=== PATIENT | male | born 1950 | race Hispanic/Latino ===

== ENCOUNTER 2020-06-01 12:09 | Inpatient (IN) | payer MEDICARE ==
[~2020-06-01] VITALS: Ht 170.2 cm; Wt 102.1 kg
[~2020-06-01 12:09] MED LIST changes: -ASPIRIN ENTERI325 MG PO; -ELIQUIS5 MG PO; -LIPITOR10 MG PO; -METOPROLOL TART50 MG PO; -PANTOPRAZOLE SO40 MG PO
[2020-06-01 12:50] LABS: BASOPHILS % 0.4 % (0.0-1.0); EOSINOPHILS # (AUTO) 0.2 (0.0-0.4); EOSINOPHILS % 1.8 % (0.0-6.0); HEMATOCRIT 46.8 % (38.2-49.6); HEMOGLOBIN 16.3 g/dL (14.0-18.0); LYMPHOCYTES # (AUTO) 2.3 (1.0-3.2); LYMPHOCYTES % 22.1 % (18.0-39.1); MEAN CORPUSCULAR HEMOGLOBIN 31.9 pg (28-32); MEAN CORPUSCULAR HGB CONC 34.8 g/dL (31-35); MEAN CORPUSCULAR VOLUME 91.6 fL (81-99); MONOCYTES # (AUTO) 1.2 (0.2-0.8); MONOCYTES % 11.7 % (4.4-11.3); NEUTROPHILS # (AUTO) 6.7 (2.1-6.9); NEUTROPHILS % 63.6 % (38.7-80.0); PLATELET COUNT 203 x10e3/uL (140-360); RED BLOOD COUNT 5.11 x10e6/uL (4.3-5.7); RED CELL DISTRIBUTION WIDTH 12.8 % (11.7-14.4)
--- NOTE | 2020-06-01 13:03 | Emergency Department Note ---
History of Present Illnes History of Present Illness Chief Complaint: Chest Pain History of Present Illness This is a 69 year old male Chief Complaint Comment Pt states was getting preop labs for upcoming endoscopy on friday when he was told his heart is "beating weird". States he was feeling "nervous" when they were drawing his blood. Denies any cp at this time. Denies any c/o at this time. Hx of HTN. Historian: Patient Leader Writer Required: No Onset (how long ago): unknown Location: None Quality: None Radiation: Reports non-radiation Severity: unable to specify Onset quality: unable to specify Timing of current episode: unable to specify Progression: unchanged Chronicity: new Context: Denies recent illness, Denies recent surgery Relieving factors: none Exacerbating factors: none Associated symptoms: Reports denies other symptoms Treatments prior to arrival: none Past Medical/Family History Physician Review I have reviewed the patient's past medical and family history. Any updates have been documented here. Past Medical History Recent Fever: No Clinical Suspicion of Infectio: No New/Unexplained Change in Ment: No Past Medical History: Hypertension Past Surgical History: Cholecysctectomy Other Surgery: Mole removal to R cheek and ear perforation surgery to R ear. Social History Smoking Cessation: Current some day smoker Alcohol Use: Occasional Any Illegal Drug Use: No Physically hurt or threatened: No Other Any Pre-Existing Lines (PICC,: No Review of Systems Review of Systems Constitutional: Reports no symptoms EENTM: Reports no symptoms Cardiovascular: Reports no symptoms Respiratory: Reports no symptoms Gastrointestinal: Reports no symptoms Genitourinary: Reports no symptoms Musculoskeletal: Reports no symptoms Integumentary: Reports no symptoms Neurological: Reports no symptoms Psychological: Reports no symptoms Endocrine: Reports no symptoms Hematological/Lymphatic: Reports no symptoms Physical Exam Related Data Allergies: Coded Allergies: No Known Allergies (Unverified , 05/31/20) Triage Vital Signs Vital Signs Date Time Temp Pulse Resp B/P (MAP) Pulse Ox O2 Delivery O2 Flow Rate FiO2 06/01/20 12:45 98.5 126 17 149/111 98 Room Air Vital signs reviewed: Yes Physical Exam CONSTITUTIONAL Constitutional: Present well-developed, Present well-nourished HENT HENT: Present normocephalic, Present atraumatic, Present oropharynx clear/moist, Present nose normal HENT L/R: Present left ext ear normal, Present right ext ear normal EYES Eyes: Reports PERRL, Reports conjunctivae normal NECK Neck: Present ROM normal PULMONARY Pulmonary: Present effort normal, Present breath sounds normal CARDIOVASCULAR Cardiovascular: Present irregular rhythm, Present heart sounds normal, Present capillary refill normal, Present tachycardia; Absent regular rhythm GASTROINTESTINAL Abdominal: Present soft, Present nontender, Present bowel sounds normal GENITOURINARY Genitourinary: Present exam deferred SKIN Skin: Present warm, Present dry MUSCULOSKELETAL Musculoskeletal: Present ROM normal NEUROLOGICAL Neurological: Present alert, Present oriented x 3, Present no gross motor or sensory deficits PSYCHOLOGICAL Psychological: Present mood/affect normal, Present judgement normal Results Laboratory Result Diagram: 06/01/20 1234 Laboratory Laboratory Tests Test 06/01/20 12:34 White Blood Count 10.48 x10e3/uL (4.8-10.8) Red Blood Count 5.11 x10e6/uL (4.3-5.7) Hemoglobin 16.3 g/dL (14.0-18.0) Hematocrit 46.8 % (38.2-49.6) Mean Corpuscular Volume 91.6 fL (81-99) Mean Corpuscular Hemoglobin 31.9 pg (28-32) Mean Corpuscular Hemoglobin Concent 34.8 g/dL (31-35) Red Cell Distribution Width 12.8 % (11.7-14.4) Platelet Count 203 x10e3/uL (140-360) Neutrophils (%) (Auto) 63.6 % (38.7-80.0) Lymphocytes (%) (Auto) 22.1 % (18.0-39.1) Monocytes (%) (Auto) 11.7 % (4.4-11.3) Eosinophils (%) (Auto) 1.8 % (0.0-6.0) Basophils (%) (Auto) 0.4 % (0.0-1.0) Neutrophils # (Auto) 6.7 (2.1-6.9) Lymphocytes # (Auto) 2.3 (1.0-3.2) Monocytes # (Auto) 1.2 (0.2-0.8) Eosinophils # (Auto) 0.2 (0.0-0.4) Basophils # (Auto) 0.0 (0.0-0.1) Absolute Immature Granulocyte (auto 0.04 x10e3/uL (0-0.1) Lab results reviewed: Yes Imaging Imaging results reviewed: Yes Diagnostics Tests Diagnostic test(s) reviewed: Yes Procedures 12 Lead ECG Interpretation ECG Interpretation : Leader Writer: Interpreted by ED physician Date: Jun 01, 2020 Rhythm: atrial flutter Rate: tachycardia QRS axis: normal ST segments normal: Yes T waves normal: Yes Clinical Impression: abnormal ECG Assessment & Plan Medical Decision Making MDM 69 y.o M past medical history significant for hypertension presents to emergency department for abnormal EKG. He is having preop screening with EKG today in the hospital is noted to be in atrial flutter with a variable block. Patient has no complaints this time. Confirmed EKG shows atrial flutter, unknown when he started this rhythm. He was given Lopressor 10 mg. Admit to . Dr. Cedeño consulted Reassessment Reassessment time: 13:02 Reassessment Well appearing, NAD Assessment & Plan Final Impression: (1) Atrial flutter Depart Disposition: ADMITTED Last Vital Signs Date Time Temp Pulse Resp B/P (MAP) Pulse Ox O2 Delivery O2 Flow Rate FiO2 06/01/20 12:45 98.5 126 17 149/111 98 Room Air Home Meds Reported Medications Lisinopril (LISINOPRIL) 10 Mg Tablet, 40 MG PO DAILY, #30 TAB 05/31/20 Metoprolol Succinate (METOPROLOL SUCCINATE) 50 Mg Tab.er.24h, 50 MG PO DAILY, MG 05/31/20 DANIELA MORTON MD Jun 01, 2020 13:03
[2020-06-01] MEDS ORDERED: METOPROLOL TARTRATE INJ 1 MG/ML VIAL IV ONE ×2 (13:15)
[2020-06-01] MEDS ORDERED: SODIUM CHLORIDE 0.9% 1000ML 1,000 ML IV SCH (13:15)
--- NOTE | 2020-06-01 13:19 | Diagnostic Imaging Report ---
TECHNIQUE: Frontal view of the chest. INDICATION: ^A-flutter ^[id number] ^[id number] COMPARISON: None DISCUSSION: Limited evaluation due to portable technique. Lines and hardware: Overlying EKG leads are noted Heart and mediastinum: Within normal limits. Lungs and pleura: No focal airspace consolidation. No pleural effusion. No pneumothorax. Soft tissues and bones: No acute abnormality. IMPRESSION: Negative for acute intrathoracic process. Signed by: Pieter Marrero MD on 06/01/2020 1:16 PM
[2020-06-01 13:20] LABS: ALBUMIN 4.2 g/dL (3.5-5.0); ANION GAP 13.6 mmol/L (8-16); CREATININE, SERUM 1.29 mg/dL (0.72-1.25); POTASSIUM 3.6 mmol/L (3.5-5.1)
[2020-06-01] MEDS ORDERED: SODIUM CHLORIDE 0.9% 500ML 500 ML ONE (13:25)
[2020-06-01 13:51] LABS: THYROID STIMULATING HORMONE 1.193 uIU/mL (0.350-4.940)
--- OUTSIDE RECORDS SUMMARY | 2020-06-01 14:20 | XMS REPORT | Continuity of Care Document ---
Author Author [facility] t Organization [facility] Address [address] [place] [address] Phone Unavailable Care Team Providers Care Anatomic Pathology Assistant Name Role Phone Eugene Grande Attdavid Unavailable Problems Condition Name Condition Details Condition Category Status Onset Date Resolution Date Last Treatment Date Treating Clinician Comments Source Alcohol dependence Alcohol Dependence Problem Active 2017-09-17 00:00:0 0 [facility] Raised prostate specific antigen Raised Prostate Specific Antige n Problem Active 2017-09-17 00:00:00 [facility] Lower urinary tract symptoms due to benign prostatic h ypertrophy Lower Urinary Tract Symptoms Due to Benign Prostatic Hypertrophy Problem Active 2017-09-17 00:00:00 [facility] Prediabetes Prediabetes Problem Active 2017-02-21 00:00:00 [facility] Tobacco user Tobacco User Problem Active 2016-10-17 00:00:00 [facility] Hearing loss Hearing Loss Problem Active 2016-05-17 00:00:00 [facility] Hypertensive disorder Hypertensive Disorder Problem Active 201 12-15-24 00:00:00 [facility] ractice Chronic mastoiditis Chronic Mastoiditis Problem Active 2016-05 00:00:00 2017-10-22 00:00:00 [facility] Allergies, Adverse Reactions, Alerts This patient has no known allergies or adverse reactions. Social History Smoking Status Start Date Stop Date Source Light Tobacco Smoker [facility] Medications Ordered Medication Name Filled Medication Name Start Date Stop Da te Current Medication? Ordering Clinician Indication Dosage Frequency Signature (SIG) Comments Components Source trazodone 100 mg tablet trazodone 100 mg tablet 2016-10-17 00:00 :00 2017-02-20 00:00:00 No trazodone 100 mg tablet [facility] fexofenadine 60 mg tablet casper 1 tablet a por via oral dos veces cada bharat por cristhian necesaria alergias fexofenadine 60 mg tablet casper 1 tablet a por via oral dos veces cada bharat por cristhian necesaria alergias No fexofenadine 60 mg tablet casper 1 tableta por via oral dos veces cada bharat por cristhian necesaria alergias [facility] Pract ice fluticasone 50 mcg/actuation nasal spray,suspension fl uticasone 50 mcg/actuation nasal spray,suspension No f luticasone 50 mcg/actuation nasal spray,suspension [facility]-hydrochlorothiazide 25 mg tablet bisi nopril 20 mg- hydrochlorothiazide 25 mg tablet No lisinopril 20 mg- hydrochlorothiazide 25 mg tablet [facility] metoprolol tartrate 50 mg tablet metoprolol tartrate 50 mg tablet No metoprolol tartrate 50 mg tablet [facility] tamsulosin 0.4 mg capsule tamsulosin 0.4 mg capsule No tamsulosin 0.4 mg capsule [facility] mg tablet casper 1 tableta po r via oral dos veces cada bharat por cristhian necesaria dolor tramadol 50 mg tablet casper 1 tableta po r via oral dos veces cada bharat por cristhian necesaria dolor No tramadol 50 mg tablet casper 1 tableta por via oral dos veces cada bharat por cristhian necesaria dolor [facility] amoxicillin 875 mg-potassium clavulanate 125 mg tablet amoxicillin 875 mg- potassium clavulanate 125 mg tablet 2017-09-17 00:00:00 No amoxicillin 875 mg-potassium clavulanate 125 mg tablet [facility] gabapentin 300 mg capsule gabapentin 300 mg capsule 00:00:00 No gabapentin 300 mg capsule [facility] naproxen 500 mg tablet Take 1 tablet twice a day by or al route for 30 days. naproxen 500 mg tablet Take 1 tablet twice a day by oral route for 30 days. 2017-02-20 00:00:00 No 1 BID napro xen 500 mg tablet Take 1 tablet twice a day by oral route for 30 days. [place] Depo-Medrol 80 mg/mL suspension for inje ction injected 1 ml deep IM, once, as a single dose Depo-Medrol 80 mg/mL suspension for inje ction injected 1 ml deep IM, once, as a single dose 2016-12-23 00:00:00 No Depo-Medrol 80 mg/mL suspension for injection injected 1 ml deep IM, once, as a single dose [facility] diazepam 2 mg tablet Take 1 tablet 3 times a day by or al route for 15 days. diazepam 2 mg tablet Take 1 tablet 3 times a day by oral route for 15 days. 2016-10-17 00:00:00 No 1 TID diaze kaylin 2 mg tablet Take 1 tablet 3 times a day by oral route for 15 days. [place] ketorolac 60 mg/2 mL intramuscular solut ion Inject 2 mL every day by intramuscular route for 1 day. ketorolac 60 mg/2 mL intramuscular solut ion Inject 2 mL every day by intramuscular route for 1 day. 2016 00:00:00 No 2mL Q1D ketorolac 60 mg /2 mL intramuscular solution Inject 2 mL every day by intramuscular route for 1 day. [place] Anaprox DS 550 mg tablet Take 1 tablet e very 12 hours by oral route for 60 days. Anaprox DS 550 mg tablet Take 1 tablet e very 12 hours by oral route for 60 days. 2016-10-02 00:00:00 No 1 Q12H Anap greg DS 550 mg tablet Take 1 tablet every 12 hours by oral route for 60 days. [facility] Ciprodex 0.3 %-0.1 % ear drops,suspension Ciprodex 0.3 %-0.1 % ear drops,suspension 2016-10-02 00:00:00 No Ciprodex 0.3 %-0.1 % ear drops,suspension [facility] 500 mg tablet ciprofloxacin 500 mg tablet 2016-04-29 00:00:00 No ciprofloxacin 500 mg tablet [facility] lisinopril 20 mg-hydrochlorothiazide 12.5 mg tablet li sinopril 20 mg- hydrochlorothiazide 12.5 mg tablet 2016-04-29 00:00:00 No lisinopril 20 mg-hydrochlorothiazide 12.5 mg tablet [facility] metronidazole 250 mg tablet metronidazole 250 mg tablet 2016-04-29 00:00:00 No metronidazole 250 mg tablet [facility] metronidazole 500 mg tablet metronidazole 500 mg tablet 2016-04-29 00:00:00 No metronidazole 500 mg tablet [facility] uvmoidys-rspuuokln-sfqhfyzjr 3.5 mg-10,000 unit/mL-1 % ear drops,susp tjxxyxpd-wmfelzqhz-nupbywmwb 3.5 mg-10,000 unit/mL-1 % ear drops,susp 2016-04-29 00:00:00 No neomy zcq-jfedabqds-lcmzxfumn 3.5 mg-10,000 unit/mL-1 % ear drops,susp [facility] Suprep Bowel Prep Kit 17.5 gram-3.13 gram-1.6 gram ora l solution Suprep Bowel Prep Kit 17.5 gram-3.13 gram-1.6 gram oral solution 2016-04-29 00:0 0:00 No Suprep Bowel Prep Kit 17.5 gram-3.13 gram-1.6 g [place] oral solution [facility] Immunizations Ordered Immunization Name Filled Immunization Name Date Status Comments Source pneumococcal conjugate PCV 13 pneumococcal conjugate PCV 13 2017 17:07:00 Completed [facility] Vital Signs Vital Name Observation Time Observation Value Comments Source BP Diastolic 2017-10-16 00:00:00 64 mm[Hg] [facility] Height 2017-10-16 00:00:00 68 [in_i] [facility] BMI (Body Mass Index) 2017-10-16 00:00:00 34.5 kg/m2 [facility] BP Systolic 2017-10-16 00:00:00 130 mm[Hg] [facility] Body Weight 2017-10-16 00:00:00 226.8 [lb_av] [facility] BP Diastolic 2017-09-17 00:00:00 89 mm[Hg] [facility] Height 2017-09-17 00:00:00 68 [in_i] [facility] BMI (Body Mass Index) 2017-09-17 00:00:00 34.5 kg/m2 [facility] BP Systolic 2017-09-17 00:00:00 124 mm[Hg] [facility] Body Weight 2017-09-17 00:00:00 227 [lb_av] [facility] BP Diastolic 2017-08-20 00:00:00 92 mm[Hg] [facility] Height 2017-08-20 00:00:00 68 [in_i] [facility] BMI (Body Mass Index) 2017-08-20 00:00:00 34.5 kg/m2 [facility] BP Systolic 2017-08-20 00:00:00 170 mm[Hg] [facility] Body Weight 2017-08-20 00:00:00 226.8 [lb_av] [facility] BP Diastolic 2017-03-20 00:00:00 64 mm[Hg] [facility] Height 2017-03-20 00:00:00 68 [in_i] [facility] BMI (Body Mass Index) 2017-03-20 00:00:00 35.6 kg/m2 [facility] BP Systolic 2017-03-20 00:00:00 128 mm[Hg] [facility] Body Weight 2017-03-20 00:00:00 234 [lb_av] [facility] BP Diastolic 2017-02-20 00:00:00 100 mm[Hg] [facility] Height 2017-02-20 00:00:00 68 [in_i] [facility] BMI (Body Mass Index) 2017-02-20 00:00:00 35.6 kg/m2 [facility] BP Systolic 2017-02-20 00:00:00 172 mm[Hg] [facility] Body Weight 2017-02-20 00:00:00 234 [lb_av] [facility] BP Diastolic 2016-12-23 00:00:00 93 mm[Hg] [facility] Height 2016-12-23 00:00:00 68 [in_i] [facility] BMI (Body Mass Index) 2016-12-23 00:00:00 35.7 kg/m2 [facility] BP Systolic 2016-12-23 00:00:00 175 mm[Hg] [facility] Body Weight 2016-12-23 00:00:00 235 [lb_av] [facility] BP Diastolic 2016-10-24 00:00:00 85 mm[Hg] [facility] Height 2016-10-24 00:00:00 68 [in_i] [facility] BMI (Body Mass Index) 2016-10-24 00:00:00 35.4 kg/m2 [facility] BP Systolic 2016-10-24 00:00:00 145 mm[Hg] [facility] Body Weight 2016-10-24 00:00:00 232.8 [lb_av] [facility] BP Diastolic 2016-10-18 00:00:00 82 mm[Hg] [facility] Height 2016-10-18 00:00:00 68 [in_i] [facility] BMI (Body Mass Index) 2016-10-18 00:00:00 35.7 kg/m2 [facility] BP Systolic 2016-10-18 00:00:00 162 mm[Hg] [facility] Body Weight 2016-10-18 00:00:00 234.8 [lb_av] [facility] BP Diastolic 2016-10-17 00:00:00 86 mm[Hg] [facility] Height 2016-10-17 00:00:00 68 [in_i] [facility] BMI (Body Mass Index) 2016-10-17 00:00:00 35.5 kg/m2 [facility] BP Systolic 2016-10-17 00:00:00 189 mm[Hg] [facility] Body Weight 2016-10-17 00:00:00 233.6 [lb_av] [facility] BP Diastolic 2016-10-02 00:00:00 85 mm[Hg] [facility] Height 2016-10-02 00:00:00 68 [in_i] [facility] BMI (Body Mass Index) 2016-10-02 00:00:00 35.9 kg/m2 [facility] BP Systolic 2016-10-02 00:00:00 177 mm[Hg] [facility] Body Weight 2016-10-02 00:00:00 236 [lb_av] [facility] BP Diastolic 2016-08-20 00:00:00 87 mm[Hg] [facility] Height 2016-08-20 00:00:00 68 [in_i] [facility] BMI (Body Mass Index) 2016-08-20 00:00:00 35.6 kg/m2 [facility] BP Systolic 2016-08-20 00:00:00 158 mm[Hg] [facility] Body Weight 2016-08-20 00:00:00 234 [lb_av] [facility] BP Diastolic 2016-04-29 00:00:00 90 mm[Hg] [facility] Height 2016-04-29 00:00:00 68 [in_i] [facility] BMI (Body Mass Index) 2016-04-29 00:00:00 35.9 kg/m2 [facility] BP Systolic 2016-04-29 00:00:00 170 mm[Hg] [facility] Body Weight 2016-04-29 00:00:00 236.4 [lb_av] [facility] BP Diastolic 2015-12-05 00:00:00 87 mm[Hg] [facility] Height 2015-12-05 00:00:00 68 [in_i] [facility] BMI (Body Mass Index) 2015-12-05 00:00:00 35.39 kg/m2 [facility] BP Systolic 2015-12-05 00:00:00 161 mm[Hg] [facility] Body Weight 2015-12-05 00:00:00 232.8 [lb_av] [facility] BP Diastolic 2015-11-06 00:00:00 85 mm[Hg] [facility] Height 2015-11-06 00:00:00 68 [in_i] [facility] BMI (Body Mass Index) 2015-11-06 00:00:00 35.21 kg/m2 [facility] BP Systolic 2015-11-06 00:00:00 169 mm[Hg] [facility] Body Weight 2015-11-06 00:00:00 231.6 [lb_av] [facility] BP Diastolic 2015-08-11 00:00:00 72 mm[Hg] [facility] Height 2015-08-11 00:00:00 68 [in_i] [facility] BMI (Body Mass Index) 2015-08-11 00:00:00 33.96 kg/m2 [facility] BP Systolic 2015-08-11 00:00:00 174 mm[Hg] [facility] Body Weight 2015-08-11 00:00:00 223.4 [lb_av] [facility] Procedures Procedure Date / Time Performed Performing Clinician Sourc e electrocardiogram 2017-10-16 00:00:00 [facility] TYMPANOMETRY 2017-09-17 00:00:[address] [facility] [address], abdomen + pelvis, w/wo contrast 2017-02-20 00:00:00 [facility] CT, abdomen, w/wo contrast 2016-12-23 00:00:00 [facility] US, ABDOMINAL COMPLETE 2016-10-23 00:00:00 [facility] US, ABDOMINAL COMPLETE 2016-10-18 00:00:00 [facility] Colonoscopy 2016-03-13 00:00:00 [facility] Practice Plan of Care Planned Activity Planned Date Details Comments Source Instructions [facility] Instructions [facility] Encounters Start Date/Time End Date/Time Encounter Type Admission Type Attendi [facility] Facility Care Department Encounter ID Source 2017-10-16 00:00:00 2017-10-16 00:00:00 Vic Abad MD: [address], [address], [place] [address], Ph. [facility] [id number] [facility] 2017-09-17 00:00:00 2017-09-17 00:00:00 Vic Abad MD: [id number], [address], [place] [address], [facility]. [facility] [id number] [facility] 2017-08-20 00:00:00 2017-08-20 00:00:00 Evelyn Mukund, RENTAL SALES REPRESENTATIVE: [address], [place] [address], Ph. [facility] [id number] [facility] 2017-03-20 00:00:00 2017-03-20 00:00:00 Evelyn Duval, RENTAL SALES REPRESENTATIVE: [address], [address], [place] [address], Ph. [facility] [id number] [facility] 2017-02-20 00:00:00 2017-02-20 00:00:00 Evelyn Mukund, RENTAL SALES REPRESENTATIVE: [address], [address], [place] [address], Ph. [facility] [id number] [facility] 2016-12-30 00:00:00 2016-12-30 00:00:00 Vic Abad MD: [address], [address], [place] [address], Ph. [facility] [id number] [facility] 2016-12-23 00:00:00 2016-12-23 00:00:00 VALARIE Christensen : [address], [address], [place] [address], Ph. [facility] [place] [facility] [id number] [facility] 2016-10-24 00:00:00 2016-10-24 00:00:00 Vic Abad MD: [address], [address], [place] [address], Ph. [facility] [place] [facility] [id number] [facility] 2016-10-23 00:00:00 2016-10-23 00:00:00 Vic Abad MD: [address], [address], [place] [address], Ph. [facility] [place] [facility] [id number] [facility] 2016-10-18 00:00:00 2016-10-18 00:00:00 MARK CarrascoP: [address], [address], [place] [address], Ph. [facility] [id number] [facility] 2016-10-17 00:00:00 2016-10-17 00:00:00 MARK CarrascoP: [address], [address], [place] [address], Ph. [facility] [id number] [facility] 2016-10-02 00:00:00 2016-10-02 00:00:00 VALARIE Christensen : [address], [address], [place] [address], Ph. [facility] [place] [facility] [id number] [facility] 2016-08-20 00:00:00 2016-08-20 00:00:00 Vic Abad MD: [address], [address], [place] [address], Ph. VFP [place] [facility] [id number] [facility] 2016-04-29 00:00:00 2016-04-29 00:00:00 Evelyn Duval, RENTAL SALES REPRESENTATIVE: [address] [facility] [address], [place] [address], Ph. [facility] [place] [facility] - [facility] [id number] [facility] chang Results Test Description Test Time Test Comments Results Result Comments Source CHEST SINGLE (PORTABLE) 2020-06-01 13:16:00 [facility]IC[facility] : 1950 Sex: M [facility] [address] [address] Patient Name: ÁNGEL MAURICIO MR #: [id number] : 1950 Age/Sex: 69/M Req #: [id number] Adm Physician: Ordered by: Dainela Grande MD Report #: [id number] Location: ER Room/Bed: Procedure: [id number] DX/CHEST SINGLE (PORTABLE) Exam Date: 06/01/20 Exam Time: 1235 REPORT STATUS: Signed TECHNIQUE: Frontal view of the chest. INDICATION: A-flutter [id number] COMPARISON: None DISCUSSION: Limited evaluation due to portable technique. Lines and hardware: Overlying EKG leads are noted Heart and mediastinum: Within normal limits. Lungs and pleura: No focal airspace consolidation. No pleural effusion. No pneumothorax. Soft tissues and bones: No acute abnormality. IMPRESSION: Negative for acute intrathoracic process. Signed by: Guera Marrero MD on 06/01/2020 1:16 PM Dictated By: GUERA MARRERO MD 15 Transcribed By: SAMIA on 06/01/206 COPY TO: DANIELA GRANDE MD spirometry 2017-10-22 09:23:00 Spirometry:Fev1:Fvc:Restriction:Obstruction:Notes: [facility] electrocardiogram 2017-10-16 16:24:00 Rate & Rhy thmQrsPR IntervalQRS DurationQT Interval [facility] tympanogram 2017-09-18 11:47:00 Test Item R Ear (test code = R Ear) abnormal L Ear (test code = L Ear) abnormal [facility] 2000 panel - Serum or Plasma 2017-09-17 17:15:00* Test Item Value Reference Range Interpretation Comments ALT (test code = ALT) 35 U/L 0-55 AST (test code = AST) 43 U/L 5-34 H BUN (test code = BUN) 12.0 mg/dL 8.4-25.7 alk phos (test code = alk phos) 81 unit/L 40-150 glucose (test code = glucose) 87 mg/dL 70-99 albumin (test code = albumin) 4.1 g/dL 3.5-5.0 creatinine (test code = creatinine) 0.82 mg/dL 0.72-1.25 eGFR non- (test code = eGFR non-) > 60 >60 total bilirubin (test code = total bilirubin) 0.7 mg/dL 0.2-1.2 eGFR - (test code = eGFR - ) >60 >60 sodium (test code = sodium) 139 mEq/L 136-145 potassium (test code = potassium) 4.5 mEq/L 3.5-5.1 chloride (test code = chloride) 97 mmol/L 98-107 L total protein (test code = total protein) 8.1 g/dL 6.4-8.3 calcium (test code = calcium) 9.1 mg/dL 8.8-10.0 CO2 (test code = CO2) 25.0 mmol/L 23.0-31.0 anion gap (test code = anion gap) 17 calc [facility] specific Ag [Mass/volume] in Serum or Plasma 2017-09-17 17:15:00* Test Item Value Reference Range Interpretation Comments PSA, total (test code = PSA, total) 7.18 NG/mL <4.00 H [facility] W Auto Differential panel - [id number] 15:20:00 * Test Item Value Reference Range Interpretation Comments WBC (test code = WBC) 6.32 x10*3/?L 4.23-9.07 RBC (test code = RBC) 5.00 10*12/L 4.63-6.08 hemoglobin (test code = hemoglobin) 15.60 g/dL 13.70-17.50 hematocrit (test code = hematocrit) 44.8 % 40.1-51.0 MCV (test code = MCV) 89.6 fL 80.0-100.0 MCH (test code = MCH) 31.2 pg 25.7-32.2 MCHC (test code = MCHC) 34.8 g/dL 32.3-36.5 RDW-SD (test code = RDW-SD) 43.1 fL 35.1-43.9 platelet count (test code = platelet count) 189.0 k/uL 163.0-337. 0 MPV (test code = MPV) 13.3 fL 7.5-11.5 H neut% (test code = neut%) 59.9 % 34.0-67.9 lymph% (test code = lymph%) 28.0 % 21.8-53.1 mon% (test code = mon%) 9.8 % 5.3-12.2 eos% (test code = eos%) 2.1 % 0.8-7.0 baso% (test code = baso%) 0.2 % 0.2-1.2 neut# (test code = neut#) 3.8 x10*3/?L 1.8-5.4 lymph# (test code = lymph#) 1.8 x10*3/?L 1.3-3.6 mon# (test code = mon#) 0.6 x10*3/?L 0.3-0.8 eos# (test code = eos#) 0.13 x10*3/?L 0.04-0.54 baso# (test code = baso#) 0.01 x10*3/?L 0.01-0.08 [facility] CenterHemoglobin A1c/Hemoglobin.total in [id number] 14:59:00* Test Item Value Reference Range Interpretation Comments A1C w/EAG (test code = A1C w/EAG) 6.1 % 1.0-5.7 H average blood glucose (test code = average blood glucose) 128 mg/dL [facility] Centerpulse [id number] 08:07:39* Test Item Value Reference Range Interpretation Comments Pulse Ox (test code = Pulse Ox) 97 [facility] CenterPro[facility] specific Ag [Mass/volume] in Serum or Plasma 2017-02-21 10:26:00* Test Item Value Reference Range Interpretation Comments PSA, total (test code = PSA, total) 5.37 NG/mL <4.00 H [facility] CenterHemoglobin A1c/Hemoglobin.total in [id number] 16:11:00* Test Item Value Reference Range Interpretation Comments A1C w/EAG (test code = A1C w/EAG) 5.8 % 1.0-5.7 H average blood glucose (test code = average blood glucose) 120 mg/dL [facility] CenterHelicobacter pylori [Presence] in Stomach by urea breath [id number] 09:55:00* Test Item Value Reference Range Interpretation Comments helicobacter pylori, urea breath test (t est code = helicobacter pylori, urea breath test) not detected not detected [facility] CenterHepatitis B virus surface Ag [Presence] in Serum or Plasma by Confirmatory [id number] 09:32:00* Test Item Value Reference Range Interpretation Comments hepatitis B surface antigen (test code = hepatitis B s urface antigen) non-reactive non-reactive [facility] CenterHepatic function 2000 panel - Serum or [id number] 09:32:00* Test Item Value Reference Range Interpretation Comments protein, total (test code = protein, total) 6.9 g/dL 6.1-8.1 albumin (test code = albumin) 3.8 g/dL 3.6-5.1 globulin (test code = globulin) 3.1 g/dL (calc) 1.9-3.7 albumin/globulin ratio (test code = albumin/globulin ratio) 1.2 (calc) 1.0-2.5 bilirubin, total (test code = bilirubin, total) 0.4 mg/dL 0.2-1. 2 bilirubin, direct (test code = bilirubin, direct) 0.1 mg/dL < or = 0.2 bilirubin, indirect (test code = bilirubin, indirect) 0.3 mg/dL (calc) 0.2-1.2 alkaline phosphatase (test code = alkaline phosphatase) 80 U/L 40-115 AST (test code = AST) 33 U/L 10-35 ALT (test code = ALT) 25 U/L 9-46 [facility] CenterHepatitis C virus RNA [Units/volume] (viral load) in Serum or Plasma by Probe and target amplification [id number] 09:32:00* Test Item Value Reference Range Interpretation Comments hepatitis C antibody (test code = hepatitis C antibody) non- reactive non-reactive signal to cut-off (test code = signal to cut-off) 0.04 <1.0 0 [facility] CenterHepatic function 2000 panel - Serum or [id number] 00:00:00* Test Item Value Reference Range Interpretation Comments Protein [Mass/volume] in Serum or Plasma (test code = 2885-2) 6. 9 g/dL 6.1-8.1 Albumin [Mass/volume] in Serum or Plasma (test code = 1751-7) 3. 8 g/dL 3.6-5.1 Globulin [Mass/volume] in Serum by calculation (test c ode = 68195-9) 3.1 g/dL (calc) 1.9-3.7 Albumin/Globulin [Mass Ratio] in Serum or Plasma (test code = 1759-0) 1.2 (calc) 1.0-2.5 Bilirubin.total [Mass/volume] in Serum or Plasma (test code = 1974-) 0.4 mg/dL 0.2-1.2 Bilirubin.direct [Mass/volume] in Serum or Plasma (elvie t code = 1968-01) 0.1 mg/dL < or = 0.2 Bilirubin.indirect [Mass/volume] in Serum or Plasma (t est code = 1971-1) 0.3 mg/dL (calc) 0.2-1.2 Alkaline phosphatase [Enzymatic activity /volume] in Serum or Plasma (test code = 6768-6) 80 U/L 40-115 Aspartate aminotransferase [Enzymatic ac tivity/volume] in Serum or Plasma (test code = 1920-8) 33 U/L 10-35 Alanine aminotransferase [Enzymatic acti vity/volume] in Serum or Plasma (test code = 1742-6) 25 U/L 9-46 [facility] Ag [Presence] in Serum or Plasma by Confirmatory [id number] 00:00:00* Test Item Value Reference Range Interpretation Comments Hepatitis B virus surface Ag [Presence] in Serum or Plasma by Immunoassay (test code = 5196-1) non-reactive non-reactive [facility] RNA [Units/volume] (viral load) in Serum or Plasma by Probe and target amplification [id number] 00:00:00* Test Item Value Reference Range Interpretation Comments Hepatitis C virus Ab [Presence] in Serum or Plasma by Immunoassay (test code = 57112-6) non-reactive non-reactive Hepatitis C virus Ab Signal/Cutoff in Se rum or Plasma by Immunoassay (test code = 22309-4) 0.04 <1.00 [facility] - Serum or [id number] 08:34:00* Test Item Value Reference Range Interpretation Comments cholesterol, total (test code = cholesterol, total) 156 mg/dL 12 5-200 HDL cholesterol (test code = HDL cholesterol) 48 mg/dL > or = 4 0 triglycerides (test code = triglycerides) 147 mg/dL <150 LDL-cholesterol (test code = LDL-cholesterol) 79 mg/dL (calc) <130 chol/HDLC ratio (test code = chol/HDLC ratio) 3.3 (calc) < or = 5 .0 non HDL cholesterol (test code = non HDL cholesterol) 108 mg/dL (ca lc) [facility]CBC [facility] Auto Differential panel - [id number] 08:34:00 * Test Item Value Reference Range Interpretation Comments white blood cell count (test code = white blood cell count) 6.3 thousand/uL 3.8-10.8 red blood cell count (test code = red blood cell count) 4.71 million/uL 4.20-5.80 hemoglobin (test code = hemoglobin) 14.4 g/dL 13.2-17.1 hematocrit (test code = hematocrit) 44.3 % 38.5-50.0 MCV (test code = MCV) 94.0 fL 80.0-100.0 MCH (test code = MCH) 30.7 pg 27.0-33.0 MCHC (test code = MCHC) 32.6 g/dL 32.0-36.0 RDW (test code = RDW) 13.1 % 11.0-15.0 platelet count (test code = platelet count) 234 thousand/uL 140-400 MPV (test code = MPV) 10.8 fL 7.5-12.5 absolute neutrophils (test code = absolute neutrophils) 3604 tiffani ls/uL 9451-9821 absolute lymphocytes (test code = absolute lymphocytes) 1827 tiffani ls/uL 850-3900 absolute monocytes (test code = absolute monocytes) 680 cells/uL 20 0-950 absolute eosinophils (test code = absolute eosinophils) 101 cells/u L 15-500 absolute basophils (test code = absolute basophils) 88 cells/uL 0- 200 neutrophils (test code = neutrophils) 57.2 % lymphocytes (test code = lymphocytes) 29.0 % monocytes (test code = monocytes) 10.8 % eosinophils (test code = eosinophils) 1.6 % basophils (test code = basophils) 1.4 % [facility] CenterProstate specific Ag [Mass/volume] in Serum or Plasma 2016-10-18 08:34:00* Test Item Value Reference Range Interpretation Comments PSA, total (test code = PSA, total) 6.5 NG/mL < or = 4.0 H [facility] CenterThyrotropin [Units/volume] in Serum or [id number] 08:34:00* Test Item Value Reference Range Interpretation Comments TSH (test code = TSH) 0.76 mIU/L 0.40-4.50 [facility] CenterCom[facility] 2000 [facility] - Serum or Plasma 2016-10-18 08:34:00* Test Item Value Reference Range Interpretation Comments glucose (test code = glucose) 138 mg/dL 65-99 H urea nitrogen (BUN) (test code = urea nitrogen (BUN)) 11 mg/dL 7-25 creatinine (test code = creatinine) 0.79 mg/dL 0.70-1.25 eGFR non-afr. micronesian (test code = eGFR non-afr. micronesian) 94 mL/min/1.73m2 > or = 60 eGFR (test code = eGFR ) 10 8 mL/min/1.73m2 > or = 60 BUN/creatinine ratio (test code = BUN/creatinine ratio) not applica ble 6-22 sodium (test code = sodium) 138 mmol/L 135-146 potassium (test code = potassium) 4.2 mmol/L 3.5-5.3 chloride (test code = chloride) 102 mmol/L 98-110 carbon dioxide (test code = carbon dioxide) 24 mmol/L 20-31 calcium (test code = calcium) 8.5 mg/dL 8.6-10.3 L protein, total (test code = protein, total) 6.9 g/dL 6.1-8.1 albumin (test code = albumin) 4.0 g/dL 3.6-5.1 globulin (test code = globulin) 2.9 g/dL (calc) 1.9-3.7 albumin/globulin ratio (test code = albumin/globulin ratio) 1.4 (calc) 1.0-2.5 bilirubin, total (test code = bilirubin, total) 0.4 mg/dL 0.2-1. 2 alkaline phosphatase (test code = alkaline phosphatase) 83 U/L 40-115 AST (test code = AST) 42 U/L 10-35 H ALT (test code = ALT) 29 U/L 9-46 [facility] CenterThyroxine (T4) [Mass/volume] in Serum or [id number] 08:34:00* Test Item Value Reference Range Interpretation Comments T4 (thyroxine), total (test code = T4 (thyroxine), total) 8.0 mcg/d L 4.5-12.0 [facility] 1996 [facility] - Serum or [id number] 00:00:00* Test Item Value Reference Range Interpretation Comments Cholesterol [Mass/volume] in Serum or Plasma (test code = 20 93-3) 156 mg/dL 125-200 Cholesterol in HDL [Mass/volume] in Serum or Plasma (t est code = 2085-9) 48 mg/dL > or = 40 Triglyceride [Mass/volume] in Serum or Plasma (test code = 2 571-8) 147 mg/dL <150 Cholesterol in LDL [Mass/volume] in Seru m or Plasma by calculation (test code = 65838-3) 79 mg/dL (calc) <130 Cholesterol.total/Cholesterol.in HDL [Ma ss ratio] in Serum or Plasma (test code = 9830-1) 3.3 (calc) < or = 5.0 Cholesterol non HDL [Mass/volume] in Serum or Plasma ( test code = 76737-1) 108 mg/dL (calc) [facility] or Plasma 2016-10-18 00:00:00* Test Item Value Reference Range Interpretation Comments Glucose [Mass/volume] in Serum or Plasma (test code = 2345-7) 138 m g/dL 65-99 H Urea nitrogen [Mass/volume] in Serum or Plasma (test code = 3094-0) 11 mg/dL 7-25 Creatinine [Mass/volume] in Serum or Plasma (test code = 216 0-0) 0.79 mg/dL 0.70-1.25 Glomerular filtration rate/1.73 sq M.pre dicted by Creatinine-based formula (MDRD) (test code = 98654-3) 94 mL/min/1.73m2 > or = 60 Glomerular filtration rate/1.73 sq M pre dicted among blacks by Creatinine-based formula (MDRD) (test code = 67038-1) 108 mL/min/1.73m2 > or = 60 Urea nitrogen/Creatinine [Mass Ratio] in Serum or Plas ma (test code = 3097-3) not applicable 6-22 Sodium [Moles/volume] in Serum or Plasma (test code = 2951-2 ) 138 mmol/L 135-146 Potassium [Moles/volume] in Serum or Plasma (test code = 282 3-3) 4.2 mmol/L 3.5-5.3 Chloride [Moles/volume] in Serum or Plasma (test code = 2075 -0) 102 mmol/L 98-110 Carbon dioxide, total [Moles/volume] in Serum or Plasm a (test code = 8-9) 24 mmol/L 20-31 Calcium [Mass/volume] in Serum or Plasma (test code = 67096- 6) 8.5 mg/dL 8.6-10.3 L Protein [Mass/volume] in Serum or Plasma (test code = 2885-2) 6. 9 g/dL 6.1-8.1 Albumin [Mass/volume] in Serum or Plasma (test code = 1751-7) 4. 0 g/dL 3.6-5.1 Globulin [Mass/volume] in Serum by calculation (test c ode = 87868-1) 2.9 g/dL (calc) 1.9-3.7 Albumin/Globulin [Mass Ratio] in Serum or Plasma (test code = 1759-0) 1.4 (calc) 1.0-2.5 Bilirubin.total [Mass/volume] in Serum or Plasma (test code = 1975-2) 0.4 mg/dL 0.2-1.2 Alkaline phosphatase [Enzymatic activity /volume] in Serum or Plasma (test code = 6768-6) 83 U/L 40-115 Aspartate aminotransferase [Enzymatic ac tivity/volume] in Serum or Plasma (test code = 1920-8) 42 U/L 10-35 H Alanine aminotransferase [Enzymatic acti vity/volume] in Serum or Plasma (test code = 1742-6) 29 U/L 9-[address] [facility] Auto Differential panel - [id number] 00:00:00 * Test Item Value Reference Range Interpretation Comments Leukocytes [#/volume] in Blood by Automated count (elvie t code = 6690-2) 6.3 thousand/uL 3.8-10.8 Erythrocytes [#/volume] in Blood by Automated count (t est code = 789-8) 4.71 million/uL 4.20-5.80 Hemoglobin [Mass/volume] in Blood (test code = 718-7) 14.4 g/dL 13.2-17.1 Hematocrit [Volume Fraction] of Blood by Automated cou nt (test code = 4544-3) 44.3 % 38.5-50.0 Erythrocyte mean corpuscular volume [Ent itic volume] by Automated count (test code = 787-2) 94.0 fL 80.0-100.0 Erythrocyte mean corpuscular hemoglobin [Entitic mass] by Automated count (test code = 785-6) 30.7 pg 27.0-33.0 Erythrocyte mean corpuscular hemoglobin concentration [Mass/volume] by Automated count (test code = 786-4) 32.6 g/dL 32.0-36.0 Erythrocyte distribution width [Ratio] by Automated co unt (test code = 788-0) 13.1 % 11.0-15.0 Platelets [#/volume] in Blood by Automated count (test code = 777-3) 234 thousand/uL 140-400 Platelet mean volume [Entitic volume] in Blood by Alexander-Tamiko (test code = 776-5) 10.8 fL 7.5-12.5 Neutrophils [#/volume] in Blood by Automated count (te st code = 751-8) 3604 cells/uL 3893-7766 Lymphocytes [#/volume] in Blood by Automated count (te st code = 731-0) 1827 cells/uL 850-3900 Monocytes [#/volume] in Blood by Automated count (test code = 742-7) 680 cells/uL 200-950 Eosinophils [#/volume] in Blood by Automated count (te st code = 711-2) 101 cells/uL 15-500 Basophils [#/volume] in Blood by Automated count (test code = 704-7) 88 cells/uL 0-200 Neutrophils/100 leukocytes in Blood by Automated count (test code = 770-8) 57.2 % Lymphocytes/100 leukocytes in Blood by Automated count (test code = 736-9) 29.0 % Monocytes/100 leukocytes in Blood by Automated count ( test code = 5905-5) 10.8 % Eosinophils/100 leukocytes in Blood by Automated count (test code = 713-8) 1.6 % Basophils/100 leukocytes in Blood by Automated count (test c ode = 706-2) 1.4 % [facility]Th[facility] (T4) [Mass/volume] in Serum or [id number] 00:00:00* Test Item Value Reference Range Interpretation Comments Thyroxine (T4) [Mass/volume] in Serum or Plasma (test code = 3026-2) 8.0 mcg/dL 4.5-12.0 [facility] CenterThyrotropin [Units/volume] in Serum or [id number] 00:00:00* Test Item Value Reference Range Interpretation Comments Thyrotropin [Units/volume] in Serum or Plasma (test code = 3 016-3) 0.76 mIU/L 0.40-4.50 [facility] CenterProstate specific Ag [Mass/volume] in Serum or Plasma 2016-10-18 00:00:00* Test Item Value Reference Range Interpretation Comments Prostate specific Ag [Mass/volume] in Serum or Plasma (test code = 2857-1) 6.5 NG/mL < or = 4.0 H [facility]
--- OUTSIDE RECORDS SUMMARY | 2020-06-01 14:24 | XMS REPORT | Continuity of Care Document ---
Author Author [facility] t Organization 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 Name Role Phone Eugene Grande Attdavid Unavailable Problems Condition Name Condition Details Condition Category Status Onset Date Resolution Date Last Treatment Date Treating Clinician Comments Source Alcohol dependence Alcohol Dependence Problem Active 2017-09-17 00:00:0 0 [facility] Raised prostate specific antigen Raised Prostate Specific Antige n Problem Active 2017-09-17 00:00:00 [facility] Lower urinary tract symptoms due to benign prostatic h ypertrophy Lower Urinary Tract Symptoms Due to Benign Prostatic Hypertrophy Problem Active 2017-09-17 00:00:00 [facility] Prediabetes Prediabetes Problem Active 2017-02-21 00:00:00 [facility] Tobacco user Tobacco User Problem Active 2016-10-17 00:00:00 [facility] Hearing loss Hearing Loss Problem Active 2016-05-17 00:00:00 [facility] Hypertensive disorder Hypertensive Disorder Problem Active 201 12-15-24 00:00:00 [facility] ractice Chronic mastoiditis Chronic Mastoiditis Problem Active 2016-05 00:00:00 2017-10-22 00:00:00 [facility] Allergies, Adverse Reactions, Alerts This patient has no known allergies or adverse reactions. Social History Smoking Status Start Date Stop Date Source Light Tobacco Smoker [facility] Medications Ordered Medication Name Filled Medication Name Start Date Stop Da te Current Medication? Ordering Clinician Indication Dosage Frequency Signature (SIG) Comments Components Source trazodone 100 mg tablet trazodone 100 mg tablet 2016-10-17 00:00 :00 2017-02-20 00:00:00 No trazodone 100 mg tablet [facility] fexofenadine 60 mg tablet casper 1 tablet a por via oral dos veces cada bharat por cristhian necesaria alergias fexofenadine 60 mg tablet casper 1 tablet a por via oral dos veces cada bharat por cristhian necesaria alergias No fexofenadine 60 mg tablet casper 1 tableta por via oral dos veces cada bharat por cristhian necesaria alergias [facility] Pract ice fluticasone 50 mcg/actuation nasal spray,suspension fl uticasone 50 mcg/actuation nasal spray,suspension No f luticasone 50 mcg/actuation nasal spray,suspension [facility]-hydrochlorothiazide 25 mg tablet bisi nopril 20 mg- hydrochlorothiazide 25 mg tablet No lisinopril 20 mg- hydrochlorothiazide 25 mg tablet [facility] metoprolol tartrate 50 mg tablet metoprolol tartrate 50 mg tablet No metoprolol tartrate 50 mg tablet [facility] tamsulosin 0.4 mg capsule tamsulosin 0.4 mg capsule No tamsulosin 0.4 mg capsule [facility] 50 mg tablet casper 1 tableta po r via oral dos veces cada bharat por cristhian necesaria dolor tramadol 50 mg tablet casper 1 tableta po r via oral dos veces cada bharat por cristhian necesaria dolor No tramadol 50 mg tablet casper 1 tableta por via oral dos veces cada bharat por cristhian necesaria dolor [facility] amoxicillin 875 mg-potassium clavulanate 125 mg tablet amoxicillin 875 mg- potassium clavulanate 125 mg tablet 2017-09-17 00:00:00 No amoxicillin 875 mg-potassium clavulanate 125 mg tablet [facility] gabapentin 300 mg capsule gabapentin 300 mg capsule 00:00:00 No gabapentin 300 mg capsule [facility] naproxen 500 mg tablet Take 1 tablet twice a day by or al route for 30 days. naproxen 500 mg tablet Take 1 tablet twice a day by oral route for 30 days. 2017-02-20 00:00:00 No 1 BID napro xen 500 mg tablet Take 1 tablet twice a day by oral route for 30 days. [facility] Depo-Medrol 80 mg/mL suspension for inje ction injected 1 ml deep IM, once, as a single dose Depo-Medrol 80 mg/mL suspension for inje ction injected 1 ml deep IM, once, as a single dose 2016-12-23 00:00:00 No Depo-Medrol 80 mg/mL suspension for injection injected 1 ml deep IM, once, as a single dose [facility] diazepam 2 mg tablet Take 1 tablet 3 times a day by or al route for 15 days. diazepam 2 mg tablet Take 1 tablet 3 times a day by oral route for 15 days. 2016-10-17 00:00:00 No 1 TID diaze kaylin 2 mg tablet Take 1 tablet 3 times a day by oral route for 15 days. [facility] ketorolac 60 mg/2 mL intramuscular solut ion Inject 2 mL every day by intramuscular route for 1 day. ketorolac 60 mg/2 mL intramuscular solut ion Inject 2 mL every day by intramuscular route for 1 day. 2016 00:00:00 No 2mL Q1D ketorolac 60 mg /2 mL intramuscular solution Inject 2 mL every day by intramuscular route for 1 day. [facility] Anaprox DS 550 mg tablet Take 1 tablet e very 12 hours by oral route for 60 days. Anaprox DS 550 mg tablet Take 1 tablet e very 12 hours by oral route for 60 days. 2016-10-02 00:00:00 No 1 Q12H Anap greg DS 550 mg tablet Take 1 tablet every 12 hours by oral route for 60 days. [facility] Ciprodex 0.3 %-0.1 % ear drops,suspension Ciprodex 0.3 %-0.1 % ear drops,suspension 2016-10-02 00:00:00 No Ciprodex 0.3 %-0.1 % ear drops,suspension [facility] ciprofloxacin 500 mg tablet ciprofloxacin 500 mg tablet 2016-04-29 00:00:00 No ciprofloxacin 500 mg tablet [facility] lisinopril 20 mg-hydrochlorothiazide 12.5 mg tablet li sinopril 20 mg- hydrochlorothiazide 12.5 mg tablet 2016-04-29 00:00:00 No lisinopril 20 mg-hydrochlorothiazide 12.5 mg tablet [facility] metronidazole 250 mg tablet metronidazole 250 mg tablet 2016-04-29 00:00:00 No metronidazole 250 mg tablet [facility] metronidazole 500 mg tablet metronidazole 500 mg tablet 2016-04-29 00:00:00 No metronidazole 500 mg tablet [facility] emevwytx-xgvhgzabn-uufcjcovk 3.5 mg-10,000 unit/mL-1 % ear drops,susp vurxewzi-erfncegek-reyhkwomd 3.5 mg-10,000 unit/mL-1 % ear drops,susp 2016-04-29 00:00:00 No neomy cwt-mrlwtrjyb-gtkyvwjhz 3.5 mg-10,000 unit/mL-1 % ear drops,susp [facility] Suprep Bowel Prep Kit 17.5 gram-3.13 gram-1.6 gram ora l solution Suprep Bowel Prep Kit 17.5 gram-3.13 gram-1.6 gram oral solution 2016-04-29 00:0 0:00 No Suprep Bowel Prep Kit 17.5 gram-3.13 gram-1.6 g [place] oral solution [facility] Immunizations Ordered Immunization Name Filled Immunization Name Date Status Comments Source pneumococcal conjugate PCV 13 pneumococcal conjugate PCV 13 2017 17:07:00 Completed [facility] Vital Signs Vital Name Observation Time Observation Value Comments Source BP Diastolic 2017-10-16 00:00:00 64 mm[Hg] [facility] Height 2017-10-16 00:00:00 68 [in_i] [facility] BMI (Body Mass Index) 2017-10-16 00:00:00 34.5 kg/m2 [facility] BP Systolic 2017-10-16 00:00:00 130 mm[Hg] [facility] Body Weight 2017-10-16 00:00:00 226.8 [lb_av] [facility] BP Diastolic 2017-09-17 00:00:00 89 mm[Hg] [facility] Height 2017-09-17 00:00:00 68 [in_i] [facility] BMI (Body Mass Index) 2017-09-17 00:00:00 34.5 kg/m2 [facility] BP Systolic 2017-09-17 00:00:00 124 mm[Hg] [facility] Body Weight 2017-09-17 00:00:00 227 [lb_av] [facility] BP Diastolic 2017-08-20 00:00:00 92 mm[Hg] [facility] Height 2017-08-20 00:00:00 68 [in_i] [facility] BMI (Body Mass Index) 2017-08-20 00:00:00 34.5 kg/m2 [facility] BP Systolic 2017-08-20 00:00:00 170 mm[Hg] [facility] Body Weight 2017-08-20 00:00:00 [...] Family Practice Height 2015-12-05 00:00:00 68 [in_i] [facility] Practice BMI (Body Mass Index) 2015-12-05 00:00:00 35.39 kg/m2 [facility] BP Systolic 2015-12-05 00:00:00 161 mm[Hg] [facility] Body Weight 2015-12-05 00:00:00 232.8 [lb_av] [facility] BP Diastolic 2015-11-06 00:00:00 85 mm[Hg] [facility] Height 2015-11-06 00:00:00 68 [in_i] [facility] BMI (Body Mass Index) 2015-11-06 00:00:00 35.21 kg/m2 [facility] BP Systolic 2015-11-06 00:00:00 169 mm[Hg] [facility] Body Weight 2015-11-06 00:00:00 231.6 [lb_av] [facility] BP Diastolic 2015-08-11 00:00:00 72 mm[Hg] [facility] Height 2015-08-11 00:00:00 68 [in_i] [facility] BMI (Body Mass Index) 2015-08-11 00:00:00 33.96 kg/m2 [facility] BP Systolic 2015-08-11 00:00:00 174 mm[Hg] [facility] Body Weight 2015-08-11 00:00:00 223.4 [lb_av] [facility] Procedures Procedure Date / Time Performed Performing Clinician Sourc e electrocardiogram 2017-10-16 00:00:00 [facility] Practice TYMPANOMETRY 2017-09-17 00:00:[address] [facility] [address], abdomen + pelvis, w/wo contrast 2017-02-20 00:00:00 [facility] CT, abdomen, w/wo contrast 2016-12-23 00:00:00 [facility] US, ABDOMINAL COMPLETE 2016-10-23 00:00:00 [facility] US, ABDOMINAL COMPLETE 2016-10-18 00:00:00 [facility] Colonoscopy 2016-03-13 00:00:00 [facility] Practice Plan of Care Planned Activity Planned Date Details Comments Source Instructions [facility] Instructions [facility] Practice Encounters Start Date/Time End Date/Time Encounter Type Admission Type Attendi [facility] Care Department Encounter ID Source 2017-10-16 00:00:00 2017-10-16 00:00:00 Vic Abad MD: [id number], [address], [place] [address], [facility]. [facility] [id number] [facility] chang 2017-09-17 00:00:00 2017-09-17 00:00:00 Vic Abad MD: [id number], [address], [place] [address], [facility]. [facility] [id number] [facility] Prac chang 2017-08-20 00:00:00 2017-08-20 00:00:00 Evelyn Mukund, ACID RETORT OPERATOR: [id number] [facility] [address], Ph. [facility] [id number] [facility] Prac chang 2017-03-20 00:00:00 2017-03-20 00:00:00 Evelyn Duval, ACID RETORT OPERATOR: [address] [facility] [address], [facility]. [facility] [id number] [facility] Prac chang 2017-02-20 00:00:00 2017-02-20 00:00:00 Evelyn Mukund, ACID RETORT OPERATOR: [address] [facility] [address], Ph. VFP [facility] - [facility] [id number] [facility] Prac chang 2016-12-30 00:00:00 2016-12-30 00:00:00 Vic Abad MD: [id number] [facility] [address], Ph. [facility] [id number] [facility] Prac chang 2016-12-23 00:00:00 2016-12-23 00:00:00 VALARIE Christensen : [address] [address], Ph. VFP [place] - [facility] - [facility] [id number] [facility] 2016-10-24 00:00:00 2016-10-24 00:00:00 Vic Abad MD: [id number] [facility] [address], Ph. [facility] [place] - [facility] [id number] [facility] 2016-10-23 00:00:00 2016-10-23 00:00:00 Vic Abad MD: [id number] [facility] [address], Ph. [facility] [place] [facility] - [facility] [id number] [facility] Prac chang 2016-10-18 00:00:00 2016-10-18 00:00:00 MARK CarrascoP: [address] [facility] [address], Ph. VFP [facility] - [facility] [id number] [facility] Prac chang 2016-10-17 00:00:00 2016-10-17 00:00:00 MARK CarrascoP: [address] [facility] [address], Ph. VFP [facility] [id number] [facility] Family Prac chang 2016-10-02 00:00:00 2016-10-02 00:00:00 VALARIE Christensen : [address] [facility] [facility] [address], Ph. VFP [place] - [facility] - [facility] [id number] [facility] 2016-08-20 00:00:00 2016-08-20 00:00:00 Vic Abad MD: [address] [facility] [address], Ph. VFP [place] [facility] [id number] [facility] 2016-04-29 00:00:00 2016-04-29 00:00:00 Evelyn Duval, ACID RETORT OPERATOR: [id number] [facility], [address] [address], [place] [address], Ph. VFP [place] - [facility] Practice - [facility] [id number] [facility] chang Results Test Description Test Time Test Comments Results Result Comments Source CHEST SINGLE (PORTABLE) 2020-06-01 13:16:00 [facility]IC[facility] : 1950 Sex: M [facility] [address] [address] Patient Name: ÁNGEL MAURICIO MR #: [id number] : 1950 Age/Sex: 69/M Req #: [id number] Adm Physician: Ordered by: Daniela Grande MD Report #: [id number] Location: ER Room/Bed: Procedure: [id number] DX/CHEST SINGLE (PORTABLE) Exam Date: 06/01/20 Exam [...] DANIELA GRANDE MD spirometry 2017-10-22 09:23:00 Spirometry:Fev1:Fvc:Restriction:Obstruction:Notes: [facility] electrocardiogram 2017-10-16 16:24:00 Rate & Rhy thmQrsPR IntervalQRS DurationQT Interval [facility] tympanogram 2017-09-18 11:47:00 Test Item R Ear (test code = R Ear) abnormal L Ear (test code = L Ear) abnormal [facility] CenterCom[facility] metabolic 2000 panel - [...] (test code = anion gap) 17 calc [facility] CenterProstate specific Ag [Mass/volume] in Serum or Plasma 2017-09-17 17:15:00* Test Item Value Reference Range Interpretation Comments PSA, total (test code = PSA, total) 7.18 NG/mL <4.00 H [facility] W Auto Differential panel - [id number] 15:20:00 * Test Item Value Reference Range [...] (test code = baso#) 0.01 x10*3/?L 0.01-0.08 [facility] CenterHemoglobin A1c/Hemoglobin.total in [id number] 14:59:00* Test Item Value Reference Range Interpretation Comments A1C w/EAG (test code = A1C w/EAG) 6.1 % 1.0-5.7 H average blood glucose (test code = average blood glucose) 128 mg/dL [facility] Centerpulse [id number] 08:07:39* Test Item Value Reference Range Interpretation Comments Pulse Ox (test code = Pulse Ox) 97 [facility] CenterProstate specific Ag [Mass/volume] in Serum or Plasma 2017-02-21 10:26:00* Test Item Value Reference Range Interpretation Comments PSA, total (test code = PSA, total) 5.37 NG/mL <4.00 H [facility] CenterHemoglobin A1c/Hemoglobin.total in [id number] 16:11:00* Test Item Value Reference Range Interpretation Comments A1C w/EAG (test code = A1C w/EAG) 5.8 % 1.0-5.7 H average blood glucose (test code = average blood glucose) 120 mg/dL [facility] CenterHelicobacter pylori [Presence] in Stomach by urea breath [id number] 09:55:00* Test Item Value Reference Range Interpretation Comments helicobacter pylori, urea breath test (t est code = helicobacter pylori, urea breath test) not detected not detected [facility] CenterHepatitis B virus surface Ag [Presence] in Serum or Plasma by Confirmatory [id number] 09:32:00* Test Item Value Reference Range Interpretation Comments hepatitis B surface antigen (test code = hepatitis B s urface antigen) non-reactive non-reactive [facility] CenterHepatic function 2000 panel - Serum or [id number] 09:32:00* Test Item Value Reference Range Interpretation [...] (test code = ALT) 25 U/L 9-46 [facility] CenterHepatitis C virus RNA [Units/volume] (viral load) in Serum or Plasma by Probe and target amplification [id number] 09:32:00* Test Item Value Reference Range Interpretation Comments hepatitis C antibody (test code = hepatitis C antibody) non- reactive non-reactive signal to cut-off (test code = signal to cut-off) 0.04 <1.0 0 [facility] CenterHepatic function 2000 panel - Serum or [id number] 00:00:00* Test Item Value Reference Range Interpretation Comments Protein [Mass/volume] in Serum or Plasma (test code = 2885-2) 6. 9 g/dL 6.1-8.1 Albumin [Mass/volume] in Serum or Plasma (test code = 1751-7) 3. 8 g/dL 3.6-5.1 Globulin [Mass/volume] in Serum by calculation (test c ode = 94794-3) 3.1 g/dL (calc) 1.9-3.7 Albumin/Globulin [Mass Ratio] [...] (test code = 1742-6) 25 U/L 9-46 [facility] CenterHepatitis B virus surface Ag [Presence] in Serum or Plasma by Confirmatory [id number] 00:00:00* Test Item Value Reference Range Interpretation Comments Hepatitis B virus surface Ag [Presence] in Serum or Plasma by Immunoassay (test code = 5196-1) non-reactive non-reactive [facility] CenterHepatitis C virus RNA [Units/volume] (viral load) in Serum or Plasma by Probe and target amplification [id number] 00:00:00* Test Item Value Reference Range Interpretation Comments Hepatitis C virus Ab [Presence] in Serum or Plasma by Immunoassay (test code = 57098-7) non-reactive non-reactive Hepatitis C virus Ab Signal/Cutoff in Se rum or Plasma by Immunoassay (test code = 21999-3) 0.04 <1.00 [facility] CenterLipid 1996 panel - Serum or [id number] 08:34:00* Test Item Value Reference Range Interpretation [...] non HDL cholesterol) 108 mg/dL (ca lc) [facility] CenterCBC W Auto Differential panel - [id number] 08:34:00 * Test Item Value Reference Range [...] code = absolute neutrophils) 3604 tiffani ls/uL 0579-7646 absolute lymphocytes (test code = absolute lymphocytes) [...] basophils (test code = basophils) 1.4 % [facility] CenterProstate specific Ag [Mass/volume] in Serum or Plasma 2016-10-18 08:34:00* Test Item Value Reference Range Interpretation Comments PSA, total (test code = PSA, total) 6.5 NG/mL < or = 4.0 H [facility] CenterThyrotropin [Units/volume] in Serum or [id number] 08:34:00* Test Item Value Reference Range Interpretation Comments TSH (test code = TSH) 0.76 mIU/L 0.40-4.50 [facility] CenterComprehensive metabolic 2000 panel - Serum or Plasma 2016-10-18 08:34:00* Test Item Value Reference Range Interpretation Comments glucose (test code = glucose) 138 mg/dL 65-99 H urea nitrogen (BUN) (test code = urea nitrogen (BUN)) 11 mg/dL 7-25 creatinine (test code = creatinine) 0.79 mg/dL 0.70-1.25 eGFR non-afr. south korean (test code = eGFR non-afr. south korean) 94 mL/min/1.73m2 > or = 60 eGFR [...] (test code = ALT) 29 U/L 9-46 [facility] CenterThyroxine (T4) [Mass/volume] in Serum or [id number] 08:34:00* Test Item Value Reference Range Interpretation Comments T4 (thyroxine), total (test code = T4 (thyroxine), total) 8.0 mcg/d L 4.5-12.0 [facility] CenterLipid 1996 panel - Serum or [id number] 00:00:00* Test Item Value Reference Range Interpretation [...] or Plasma by calculation (test code = 16143-6) 79 mg/dL (calc) <130 Cholesterol.total/Cholesterol.in HDL [Ma ss ratio] in Serum or Plasma (test code = 9830-1) 3.3 (calc) < or = 5.0 Cholesterol non HDL [Mass/volume] in Serum or Plasma ( test code = 48280-9) 108 mg/dL (calc) [facility] - Serum or [...] by Creatinine-based formula (MDRD) (test code = 97793-4) 94 mL/min/1.73m2 > or = 60 Glomerular filtration rate/1.73 sq M pre dicted among blacks by Creatinine-based formula (MDRD) (test code = 90384-7) 108 mL/min/1.73m2 > or = 60 Urea [...] in Serum or Plasma (test code = 09203- 6) 8.5 mg/dL 8.6-10.3 L Protein [Mass/volume] in Serum or Plasma (test code = 2885-2) 6. 9 g/dL 6.1-8.1 Albumin [Mass/volume] in Serum or Plasma (test code = 1751-7) 4. 0 g/dL 3.6-5.1 Globulin [Mass/volume] in Serum by calculation (test c ode = 74027-2) 2.9 g/dL (calc) 1.9-3.7 Albumin/Globulin [Mass Ratio] [...] (test code = 1742-6) 29 U/L 9-46 [facility] Auto Differential panel - [id number] 00:00:00 * Test Item Value Reference Range [...] (te st code = 751-8) 3604 cells/uL 5888-2304 Lymphocytes [#/volume] in Blood by Automated count [...] (test c ode = 706-2) 1.4 % [facility] CenterThyroxine (T4) [Mass/volume] in Serum or [id number] 00:00:00* Test Item Value Reference Range Interpretation Comments Thyroxine (T4) [Mass/volume] in Serum or Plasma (test code = 3026-2) 8.0 mcg/dL 4.5-12.0 [facility] CenterThyrotropin [Units/volume] in Serum or [id number] 00:00:00* Test Item Value Reference Range Interpretation Comments Thyrotropin [Units/volume] in Serum or Plasma (test code = 3 016-3) 0.76 mIU/L 0.40-4.50 [facility] CenterProstate specific Ag [Mass/volume] in Serum or Plasma 2016-10-18 00:00:00* Test Item Value Reference Range Interpretation Comments Prostate specific Ag [Mass/volume] in Serum or Plasma (test code = 2857-1) 6.5 NG/mL < or = 4.0 H [facility]
[2020-06-01] MEDS: ASPIRIN 325 MG TAB EC PO SCH (14:27)
[2020-06-01 16:38] VITALS: BP 219/84
[2020-06-01 17:15] VITALS: BP 219/84
[2020-06-01] MEDS: HYDRALAZINE HCL 20 MG/ML VIAL IV PRN (17:15)
--- NOTE | 2020-06-01 17:15 | NUR ---
PATIENT RECEIVED FROM ER PER STRETCHER. ALERT AND VERBALLY RESPONSIVE. ABLE TO TRANSFER SELF TO BED. NOTED WITH ELEVATED B/P, CAMPUS INTERVIEWS INTERN NOTIFIED. NEW ORDER RECEIVED AND IMPLEMENTED. SKIN WARM AND DRY TO TOUCH, RESPIRATION EVEN AND UNLABORED. DENIED PAIN AT THIS TIME. TELEMETRY [address] ORIENTED TO SURROUNDINGS. BED IN LOWER POSITION, CALL LIGHT AT REACH, INSTRUCTED TO CALL FOR ASSISTANCE NEEDED.
--- NOTE | 2020-06-01 18:14 | Consultation ---
DATE OF CONSULTATION: 06/01/2020 Cardiology Consultation REQUESTING PHYSICIAN: Bala James MD. REASON FOR CONSULTATION: Atrial flutter. HISTORY OF PRESENT ILLNESS: This is a 69-year-old male with history of hypertension, who presents with high blood pressure and tachycardia. The patient reports he was getting preop labs for his upcoming endoscopy when he was told his heart rate was irregular. He was instructed to present to the ER for further evaluation. The patient denies any chest pain, shortness breath, palpitations, edema, orthopnea, or dyspnea on exertion. Preop EKG demonstrated atrial flutter with variable AV block and he was found to be hypertensive on evaluation in the ER. REVIEW OF SYSTEMS: Negative except as per HPI. PAST MEDICAL HISTORY: Hypertension. PAST SURGICAL HISTORY: 1. Cholecystectomy. 2. Ear surgery. ALLERGIES: PLEASE SEE EMR. MEDICATIONS: Please see medication list. SOCIAL HISTORY: He does occasionally smoke and drink. No illicit drugs. FAMILY HISTORY: Denies. PHYSICAL EXAMINATION: VITAL SIGNS: Temperature 97.7 degrees, pulse 65, respiratory rate 19, blood pressure 219/84, and oxygen saturation 100% on room air. GENERAL: Obese gentleman, in no acute distress, well developed, nourished. HEENT: Normocephalic, atraumatic. Pupils equal. No scleral icterus. NECK: Supple. No thyromegaly or cervical lymphadenopathy. No carotid bruits. LUNGS: Clear to auscultation bilaterally. No wheezes or crackles. HEART: Tachycardic, irregular rhythm. No murmur. Normal S1 and S2. ABDOMEN: Soft and nontender. EXTREMITIES: No edema. NEUROLOGIC: Nonfocal exam. LABORATORY DATA: WBC 10.48, hemoglobin 16.3, hematocrit 46.8, and platelets 203. Sodium 138, potassium 3.6, CO2 27, BUN 18, and creatinine 1.29. Troponin 0.14. TSH 1.193. EKG demonstrated atrial flutter with variable AV block, right bundle-branch block. Chest x-ray negative for acute intrathoracic process. IMPRESSION: 1. Atrial flutter with variable AV block. 2. Hypertension. 3. Acute kidney injury versus chronic kidney disease. RECOMMENDATIONS: TSH is normal. Obtain echocardiogram to evaluate for structural heart disease. We will start the patient on scheduled metoprolol for heart rate and blood pressure control. The patient's CHADS-VASc score is 2, for hypertension and age. Start Eliquis for CVA prophylaxis. He will be able to proceed with endoscopy once heart rate is controlled. Anticoagulation can be held two days prior to procedure. He will need outpatient followup to arrange for ablation of his atrial flutter, but this can wait until after his endoscopy. Thank you for this consult. We will continue to follow. Mirna Seth MD ABS/MODL /[id number] MTDD
[2020-06-01 20:00] VITALS: BP 137/86
[2020-06-01] MEDS: APIXABAN 5 MG TABLET PO SCH (21:22)
[2020-06-01] MEDS: METOPROLOL TARTRATE 50 MG TAB PO SCH (21:23)
[2020-06-02] VITALS (8 sets, daily range): BP systolic 116–166; BP diastolic 76–96
--- NOTE | 2020-06-02 00:18 | NUR ---
PATIENT AAOX3. NO ADVERSE S/S. BEDSIDE EDUCATION S/S ASSOCIATED WITH LOW HR AND TO REPORT TO NURSE IF OCCURS. VERBALIZES UNDERSTANDING. HR 46. ALL SAFETY MEASURES IN PLACE.
--- NOTE | 2020-06-02 05:25 | NUR ---
H&P cc: rapid HR HPI 69yoM, PCP pt does not recall, while preparing for colonoscopy developed elevated HR, found to have A.flutter. Cardiology consulted; PMH: HTN, current smoker PSHx: cholecystectomy Allergies; see emr FH/SH; ; smokes cigs meds; see MAR ROS: no f/c/s/N/V/D/GREER/cp/sob/skin rash/confusion/dizziness/vision changes/leg pain v/s; revd PE tired appearing anicteric ns12 mod bs soft nt nd no e/t skin dry n. affect a&ox3; marley labs/meds revd A/P: 69M A.flutter- AV blockade HTN- cont BB MILEY vs CKD- f/u labs Obesity- check hba1c/lipids BMI 35 - as above Current smoker- encourged to quit Prop; scd DIpso: f/u cardio WHITNEY WEATHERS MD PHD
[2020-06-02] MEDS: METOPROLOL TARTRATE 50 MG TAB PO SCH ×5 (05:35→23:19)
[2020-06-02 06:18] LABS: BASOPHILS % 0.4 % (0.0-1.0); EOSINOPHILS # (AUTO) 0.4 (0.0-0.4); EOSINOPHILS % 5.4 % (0.0-6.0); HEMATOCRIT 44.6 % (38.2-49.6); HEMOGLOBIN 15.2 g/dL (14.0-18.0); MEAN CORPUSCULAR HEMOGLOBIN 31.3 pg (28-32); MEAN CORPUSCULAR HGB CONC 34.1 g/dL (31-35); MEAN CORPUSCULAR VOLUME 91.8 fL (81-99); MONOCYTES # (AUTO) 0.9 (0.2-0.8); MONOCYTES % 13.5 % (4.4-11.3); NEUTROPHILS # (AUTO) 3.5 (2.1-6.9); NEUTROPHILS % 51.4 % (38.7-80.0); PLATELET COUNT 176 x10e3/uL (140-360); RED BLOOD COUNT 4.86 x10e6/uL (4.3-5.7); RED CELL DISTRIBUTION WIDTH 13.1 % (11.7-14.4)
[2020-06-02 06:38] LABS: ANION GAP 12.6 mmol/L (8-16); BLOOD UREA NITROGEN 14 mg/dL (7-26); BUN/CREATININE RATIO 15 (6-25); CALCIUM 8.2 mg/dL (8.4-10.2); CARBON DIOXIDE 26 mmol/L (22-29); CHLORIDE 104 mmol/L (98-107); CREATININE, SERUM 0.94 mg/dL (0.72-1.25); EST GLOMERULAR FILTRATION RATE > 60 ML/MIN (60-); GLUCOSE 107 mg/dL (74-118); POTASSIUM 3.6 mmol/L (3.5-5.1); SODIUM 139 mmol/L (136-145)
[2020-06-02] MEDS ORDERED: ONDANSETRON HCL INJ 2MG/ML 2ML 2 MG/ML VIAL IV PRN (06:45)
[2020-06-02] MEDS ORDERED: DOCUSATE SODIUM 100 MG CAP PO PRN (06:45)
[2020-06-02] MEDS ORDERED: ZOLPIDEM TARTRATE 5 MG TAB PO PRN (06:45)
[2020-06-02] MEDS ORDERED: ACETAMINOPHEN 325 MG TAB PO PRN (06:45)
[2020-06-02 07:18] LABS: CHOL/HDL RATIO 3.7 (3.9-4.7)
--- NOTE | 2020-06-02 07:28 | NUR ---
REPORT GIVEN TO DAYSHIFT NURSE. ALERT AND RESTING IN BED. NO SIGNS IV INFILTRATION. NO ADVERSE SIGNS OR SYMPTOMS. ALL SAFETY PRECAUTIONS PRESENT. CALL LIGHT WITHIN REACH.
[2020-06-02] MEDS: APIXABAN 5 MG TABLET PO SCH ×2 (08:52→17:39)
[2020-06-02] MEDS: ASPIRIN 325 MG TAB EC PO SCH (08:53)
--- NOTE | 2020-06-02 12:53 | Progress Note ---
DATE: 06/02/2020 Cardiology Progress Note SUBJECTIVE: The patient denies chest pain or shortness of breath. OBJECTIVE: VITAL SIGNS: Temperature 97.6 degrees, pulse 70, respiratory rate 16, blood pressure 144/82, and oxygen saturation 99% on room air. GENERAL: Awake, alert, in no acute distress. LUNGS: Clear to auscultation bilaterally. No wheeze or crackles. CARDIOVASCULAR: Normal rate. Regular rhythm. No murmur. Normal S1 and S2. ABDOMEN: Soft and nontender. EXTREMITIES: No edema. CARDIAC MEDICATIONS: Aspirin 325 mg p.o. daily, apixaban 5 mg p.o. b.i.d., and metoprolol tartrate 50 mg p.o. q.6 hours. LABORATORY DATA: WBC 6.87, hemoglobin 15.2, hematocrit 34.6, and platelets 176. Sodium 139, potassium 3.6, chloride 104, CO2 26, BUN 14, and creatinine 0.94. Cholesterol 165, triglycerides 100, LDL 100, and HDL 45. Telemetry was personally reviewed and interpreted, revealing atrial flutter with borderline rate control. IMPRESSION: 1. Atrial flutter with variable AV block. 2. Hypertension. 3. Acute kidney injury versus chronic kidney disease. RECOMMENDATION: TSH is normal. We will evaluate echocardiogram images once it has been performed. Continue scheduled metoprolol. Continue Eliquis for CVA prophylaxis. He can proceed with endoscopy once heart rate is controlled. Eliquis can be held for 2 days prior to his procedure. He will need outpatient followup to arrange for ablation of his atrial flutter. Thank you for this consult. We will continue to follow. Mirna Seth MD ABS/MODL /[id number]
[2020-06-02] MEDS: HYDRALAZINE HCL 20 MG/ML VIAL IV PRN (20:28)
[2020-06-03] VITALS (8 sets, daily range): BP systolic 130–153; BP diastolic 73–89
[2020-06-03] MEDS: METOPROLOL TARTRATE 50 MG TAB PO SCH ×3 (05:23→18:24)
--- NOTE | 2020-06-03 05:45 | NUR ---
IM- progress note O/N see below ROS: no f/c/s/N/V/D/GREER/cp/sob/skin rash/confusion/dizziness/vision changes/leg pain v/s; revd PE tired appearing anicteric ns12 mod bs soft nt nd no e/t skin dry n. affect a&ox3; marley labs/meds revd A/P: 69M A.flutter- AV blockade HTN- cont BB MILEY vs CKD- f/u labs Obesity- check hba1c/lipids BMI 35 - as above Current smoker- encourged to quit PreDM- hab1c 5.8 HLD- LDL 100 Prop; scd DIpso: f/u cardio Hba1c.LDL 5.8/100. PreDM and HLD; f/u echo; WHITNEY WEATHERS MD PHD
--- NOTE | 2020-06-03 07:21 | NUR ---
REPORT GIVEN TO DAYSHIFT NURSE. ALERT AND ORIENTED. RESTING IN BED. NO SIGNS IV INFILTRATION. BED LOCKED AND IN LOW POSITION. CALL LIGHT WITHIN REACH
[2020-06-03] MEDS: APIXABAN 5 MG TABLET PO SCH ×2 (08:32→18:24)
[2020-06-03] MEDS: ASPIRIN 325 MG TAB EC PO SCH (08:32)
--- NOTE | 2020-06-03 12:01 | NUR ---
Spoke with DAYANA Thomas for Dr. Cedeño. Stated that patient is clear to discharge from production administrator stand point.
--- NOTE | 2020-06-03 12:42 | NUR ---
Notified regarding general cargo clerk is clearing the patient for discharge. Addendum: 06/03/20 at 1259 by Yesica Broderick RN No discharge order given.
--- NOTE | 2020-06-03 19:10 | NUR ---
Resumed care of patient. Patient awake and resting in bed, respirations even and unlabored on room air, no s/s of distress at this time. Telemetry showing atrial flutter @ 59. Bed locked and in lowest position, side rails upx2, call light placed within reach. Patient instructed to call for assistance if needed, verbalized understanding. All safety measures in place.
[2020-06-04] MEDS: METOPROLOL TARTRATE 50 MG TAB PO SCH ×2 (00:02→05:14)
[2020-06-04 00:09] VITALS: BP 141/75
[2020-06-04 04:00] VITALS: BP 154/87
--- NOTE | 2020-06-04 05:59 | Progress Note ---
DATE: 06/03/2020 CARDIOLOGY PROGRESS NOTE: SUBJECTIVE: The patient is without any new complaints this morning. However, he does endorse some right upper quadrant pain that has been ongoing. He denies any chest pain, shortness of breath, palpitations, dizziness, or obvious signs of bleeding. OBJECTIVE: VITAL SIGNS: Temperature 97.9, pulse 60, respiratory rate 18, blood pressure 147/88, oxygen saturation 99% on room air. GENERAL: Alert and oriented x3. Resting comfortably in bed, does not appear to be in any acute distress. NECK: Supple. No JVD noted. No carotid bruit. CARDIOVASCULAR: Regular rate and rhythm. No murmurs, no gallops. LUNGS: Clear to auscultation throughout. No wheezing. No rhonchi or crackles. ABDOMEN: Soft, nontender. Normoactive bowel sounds. LOWER EXTREMITIES: No edema. 2+ pedal pulses. CARDIOVASCULAR MEDICATIONS: 1. Apixaban 5 mg p.o. b.i.d. 2. Aspirin 325 p.o. daily. 3. Metoprolol 50 p.o. q.6 hours. LABORATORY DATA: No new labs today. TELEMETRY: I have personally reviewed telemetry and reflex, rate controlled, atrial flutter. IMPRESSION: 1. Atrial flutter with variable AV block. 2. Hypertension. 3. Acute kidney injury versus chronic kidney injury. RECOMMENDATIONS: Continue with Eliquis for CVA prophylaxis. Continue with the rest of the above listed cardiac medications. The patient reports he is pending endoscopy this coming Friday. His rate control is much improved. His Eliquis will need to be held for a couple of days prior to this procedure. We will consider discontinuing tomorrow. This patient will need outpatient followup and also referral to data analyst etl developer for possible ablation. We will continue to follow this patient closely. Dictated by Martha Soriano, DAYANA MD PETR MckeonV/DESIRE /[id number]
[2020-06-04] MEDS ORDERED: METOPROLOL TART50 MG PO (06:49)
[2020-06-04] MEDS ORDERED: ELIQUIS5 MG PO (06:49)
[2020-06-04] MEDS ORDERED: ASPIRIN ENTERI325 MG PO (06:49)
[2020-06-04] MEDS ORDERED: PANTOPRAZOLE SO40 MG PO (06:49)
[2020-06-04] MEDS ORDERED: LIPITOR10 MG PO (06:53)
--- NOTE | 2020-06-04 06:53 | NUR ---
D/C Summary Principal Dx: A.flutter- AV blockade HTN- cont BB MILEY vs CKD- f/u labs PreDM- hab1c 5.8 Secondary Dx: Obesity- check hba1c/lipids BMI 35 - as above Current smoker- encourged to quit HLD- LDL 100 Prop; scd DIpso: f/u cardio Hba1c.LDL 5.8/100. PreDM and HLD; f/u echo; d/c home stable f/u pcp 2 days and Cardiology 1 week for possible ablation d/c>35mins WHITNEY WEATHERS MD PHD
--- NOTE | 2020-06-04 07:00 | NUR ---
BEDSIDE SHIFT REPORT RECEIVED FROM LATESHA JEAN-BAPTISTE. PT DENIES FURTHER NEEDS.
--- NOTE | 2020-06-04 07:14 | NUR ---
Bedside shift report given to oncoming nurse. Patient awake and resting in bed, no s/s of distress at this time. All safety measures in place. Discharge orders and prescriptions from .
[2020-06-04 07:30] VITALS: BP 154/86
[2020-06-04 08:30] VITALS: BP 154/86
[2020-06-04] MEDS: ASPIRIN 325 MG TAB EC PO SCH (08:39)
[2020-06-04] MEDS: APIXABAN 5 MG TABLET PO SCH (08:39)
[2020-06-04 11:33] VITALS: BP 106/84
--- NOTE | 2020-06-04 11:45 | NUR ---
ADRIEL CARD GIVEN TO PT .
== END 2020-06-04 12:02 | disposition home or self-care (01) | DRG 309 ==
LOC: ER 12:20 → ERHOLD 13:23 → MED/SURG3 16:30
PROVIDERS: ADMIT Internal Medicine; ATTEND Internal Medicine
DX: I48.92 Unspecified atrial flutter (principal); N17.9 Acute kidney failure, unspecified; I10 Essential (primary) hypertension; Z90.49 Acquired absence of other specified parts of digestive tract; F17.210 Nicotine dependence, cigarettes, uncomplicated; N18.9 Chronic kidney disease, unspecified; E66.9 Obesity, unspecified; Z68.35 Body mass index [BMI] 35.0-35.9, adult; R73.03 Prediabetes; E78.5 Hyperlipidemia, unspecified
CPT/HCPCS: 36415; 71045; 80048; 80053; 80061; 83036; 83880; 84443; 84484; 85025; 93005; 93306; 99284; J0360; J7040; U0002

== ENCOUNTER → 2020-06-01 | Outpatient (CLI) | payer MEDICARE ==
[~2020-06-01] MED LIST: ASPIRIN ENTERI325 MG PO; ELIQUIS5 MG PO; LIPITOR10 MG PO; LISINOPRIL10 MG PO; METOPROLOL SUCC50 MG PO; METOPROLOL TART50 MG PO; PANTOPRAZOLE SO40 MG PO
[2020-06-01 11:22] LABS: BASOPHILS % 0.3 % (0.0-1.0); EOSINOPHILS # (AUTO) 0.2 (0.0-0.4); EOSINOPHILS % 1.8 % (0.0-6.0); HEMATOCRIT 46.8 % (38.2-49.6); HEMOGLOBIN 15.9 g/dL (14.0-18.0); LYMPHOCYTES % 20.3 % (18.0-39.1); MEAN CORPUSCULAR HEMOGLOBIN 31.2 pg (28-32); MEAN CORPUSCULAR VOLUME 91.9 fL (81-99); MONOCYTES # (AUTO) 1.3 (0.2-0.8); MONOCYTES % 12.8 % (4.4-11.3); NEUTROPHILS # (AUTO) 6.4 (2.1-6.9); NEUTROPHILS % 64.6 % (38.7-80.0); PLATELET COUNT 181 x10e3/uL (140-360); RED BLOOD COUNT 5.09 x10e6/uL (4.3-5.7); RED CELL DISTRIBUTION WIDTH 12.9 % (11.7-14.4)
== END ==
LOC: DX 16:46 → EDSTATUS 06-06 14:30
PROVIDERS: ATTEND Internal Medicine Gastroenterology
DX: Z01.818 Encounter for other preprocedural examination (principal); Z12.11 Encounter for screening for malignant neoplasm of colon; R10.13 Epigastric pain
CPT/HCPCS: 36415; 85025; 93005